=== PATIENT | male | born 1970 | race Caucasian/White ===

== ENCOUNTER 2022-10-08 20:55 | Emergency (ER) | payer OTHER, SELFPAY ==
[2022-10-08 20:59] VITALS: BP 127/83; PULSE 122; RESP 22; TEMP 36.8; O2SAT 96; BMI 32.6
--- NOTE | 2022-10-08 21:07 | ED_ITS ---
HPI - Altered Mental Status General: Chief Complaint: Altered Mental Status Stated Complaint: AMS Time Seen by Provider: 10/08/22 20:56 Source: patient and EMS Mode of arrival: EMS Limitations: no limitations History of Present Illness: 51-year-old male states that he had to carry 50 mg THC edible tonight roughly 2 to 3 hours ago he states he is never taken edible before and he is states he feels out of his mind. He is paranoid and is obviously under the effects of the marijuana he had some vomiting denies any pain. Associated symptoms: Deny depression Review of Systems Const: Denies: fever(s), chills, body aches or change in appetite Eyes: Denies: blurry vision or eye discomfort ENMT: Denies: throat pain or dental pain Card: Denies: chest pain Resp: Denies: dyspnea GI: Denies: abdominal pain, nausea, vomiting or diarrhea : Denies: dysuria Musc: Denies: neck pain or back pain Skin/Breast: Denies: rash Neuro: Denies: headache(s) Psych: Denies: depression Rashawn/Lymph: Denies: easy bruising All/Imm: Denies: urticaria PFSH ED PFSH: Medical History (Updated 10/08/22 @ 21:13 by Nagi Nicholas MD) No pertinent past medical history Social History (Updated 10/08/22 @ 21:08 by Nagi Nicholas MD) Substance/Drug Use: current Substance/Drug use type: Marijuana Physical Exam Const: COMMON NORMALS: patient oriented x3 GENERAL APPEARANCE: anxious HENMT: COMMON NORMALS: normocephalic and atraumatic HEAD & SCALP: normocephalic and atraumatic Eye: COMMON NORMALS: Equal, round and reactive pupils present and conjunctivae normal CONJUNCTIVA: Yes conjunctivae normal PUPIL: Yes Equal, round and reactive pupils present Neck/C-Spine: COMMON NORMALS: supple Chest: COMMONS NORMALS: normal inspection of the chest Resp: COMMON NORMALS: normal respiratory effort and clear to auscultation bilaterally AUSCULTATION: clear to auscultation bilaterally Cardio: COMMON NORMALS: regular rate and regular rhythm RATE: regular rate RHYTHM: regular rhythm GI: COMMON NORMALS: Normal to inspection, nondistended, normoactive bowel sounds present, Soft to palpation and non-tender PALPATION: Yes Soft to palpation Extremity: COMMON NORMALS: normal to inspection Neuro: COMMON NORMALS: patient oriented x3 Psych: COMMON NORMALS: cooperative ATTITUDE: Yes bizarre Skin: COMMON NORMALS: no rashes or lesions noted GENERAL SKIN EXAM: no rashes or lesions noted Course Vital Signs: Vital signs: Vital Signs Temperature 98.2 F 10/08/22 20:59 Pulse Rate 106 H 10/08/22 22:21 Respiratory Rate 18 10/08/22 22:21 Blood Pressure 127/83 10/08/22 20:59 Pulse Oximetry 96 10/08/22 22:21 Oxygen Delivery Me thod 10/08/22 22:21 MDM - Altered Mental Status Medical Decision Making Patient presents here after marijuana abuse he had a to go me never had before and caused him a reaction he is currently improving he is making more sense he is able to ambulate we will let him sober up and discharge him. Lab Data 10/08/22 20:43 10/08/22 20:43 Laboratory Results WBC 10.3 10^3/uL (4.0-10.0) H 10/08/22 20:43 RBC 4.70 10^6/uL (4.1-5.3) 10/08/22 20:43 Hgb 14.0 g/dL (11.7-16.6) 10/08/22 20:43 Hct 40.7 % (42.0-52.0) L 10/08/22 20:43 MCV 86.6 fl (80-94) 10/08/22 20:43 MCH 29.8 pg (28.0-34.0) 10/08/22 20:43 MCHC 34.4 g/dL (30.0-36.0) 10/08/22 20:43 RDW 12.5 % (12.1-15.1) 10/08/22 20:43 Plt Count 217 10^3/cmm (130-400) 10/08/22 20:43 MPV 11.4 fL (7.4-10.4) H 10/08/22 20:43 Neut % (Auto) 40.0 % 10/08/22 20:43 Lymph % (Auto) 48.8 % 10/08/22 20:43 [place] % (Auto) 8.0 % 10/08/22 20:43 Eos % (Auto) 2.0 % 10/08/22 20:43 Baso % (Auto) 0.8 % 10/08/22 20:43 Neut # (Auto) 4.12 10^3/uL (1.8-7.7) 10/08/22 20:43 Lymph # (Auto) 5.0 10^3/uL (0.8-4.8) H 10/08/22 20:43 [place] # (Auto) 0.8 10^3/uL (0.2-0.9) 10/08/22 20:43 Eos # (Auto) 0.2 10^3/uL (0.0-0.8) 10/08/22 20:43 Baso # (Auto) 0.1 10^3/uL (0.0-0.1) 10/08/22 20:43 Nucleated RBC % (auto) 0 % 10/08/22 20:43 Nucleated RBCs # 0.0 /100WBC 10/08/22 20:43 Sodium 135 mmol/L (136-145) L 10/08/22 20:43 Potassium 3.1 mmol/L (3.5-5.1) L 10/08/22 20:43 Chloride 97 mmol/L (98-107) L 10/08/22 20:43 Carbon Dioxide 23 mmol/L (22-29) 10/08/22 20:43 Anion Gap 18.1 (5-19) 10/08/22 20:43 BUN 13 mg/dL (6-20) 10/08/22 20:43 Creatinine 1.2 mg/dL (0.7-1.2) 10/08/22 20:43 GFR Calculation 63.8 mL/min (90-130) L 10/08/22 20:43 Glucose 249 mg/dL (65-115) H 10/08/22 20:43 Calculated Osmolality 288 mOsm/kg (285-295) 10/08/22 20:43 Calcium 9.0 mg/dL (8.5-10.5) 10/08/22 20:43 Total Bilirubin 0.3 mg/dL (0.15-1.2) 10/08/22 20:43 AST 20 U/L (0-40) 10/08/22 20:43 ALT 30 U/L (0-41) 10/08/22 20:43 Alkaline Phosphatase 112 U/L (40-130) 10/08/22 20:43 Total Protein 6.8 g/dL (6.6-8.7) 10/08/22 20:43 Albumin 4.0 g/dL (3.5-5.2) 10/08/22 20:43 Globulin 2.8 g/dL (1.3-4.6) 10/08/22 20:43 Discharge Plan Discharge Patient Disposition: Home Clinical Impression: Marijuana use Discharge Orders: Discharge ED (Routine); Ordered 10/08/22 Ordered By: Nagi Nicholas Discharge Diet: Advance as tolerated Discharge Activity: Resume usual activity Patient Instructions: Marijuana Abuse Coding Level of Care Code ED Automatic Clipper for Kwaku Nevarez
[2022-10-08 21:15] LABS: Basophils # 0.1 10^3/uL (0.0-0.1); Basophils % 0.8 %; Eosinophils # 0.2 10^3/uL (0.0-0.8); Hematocrit 40.7 % (42.0-52.0); Lymphocytes % 48.8 %; Mean Corpuscular HGB Conc 34.4 g/dL (30.0-36.0); Mean Corpuscular Hemoglobin 29.8 pg (28.0-34.0); Mean Corpuscular Volume 86.6 fl (80-94); Mean Platelet Volume 11.4 fL (7.4-10.4); Monocytes # 0.8 10^3/uL (0.2-0.9); Neutrophils # 4.12 10^3/uL (1.8-7.7); Nucleated Red Blood Cells % 0 %; Platelet Count 217 10^3/cmm (130-400); Red Cell Distribution Width 12.5 % (12.1-15.1); White Blood Count 10.3 10^3/uL (4.0-10.0)
[2022-10-08] MEDS: sodium chloride 0.9% 1,000 ML 999 ML IV (21:15)
[2022-10-08] MEDS: ondansetron 2 mg/ML SDV 2 mL 4 MG IVP (21:16)
[2022-10-08] MEDS: LORazepam 2 mg/mL INJ 1 mL 1 MG IVP (21:16)
[2022-10-08 21:34] LABS: Alanine Aminotransferase 30 U/L (0-41); Alkaline Phosphatase 112 U/L (40-130); Anion Gap 18.1 (5-19); Aspartate Amino Transferase 20 U/L (0-40); Blood Urea Nitrogen 13 mg/dL (6-20); Carbon Dioxide 23 mmol/L (22-29); Chloride 97 mmol/L (98-107); Globulin 2.8 g/dL (1.3-4.6); Glomerular Filtration Rate 63.8 mL/min (90-130); Glucose 249 mg/dL (65-115); Osmolality Calculated 288 mOsm/kg (285-295); Potassium 3.1 mmol/L (3.5-5.1); Sodium 135 mmol/L (136-145); Total Bilirubin 0.3 mg/dL (0.15-1.2); Total Protein 6.8 g/dL (6.6-8.7)
--- NOTE | 2022-10-08 21:41 | PC.NURSE ---
9652 - Patient assisted to bedside commode and call light placed beside patient. Advised not to get up without assistance. Understanding verbalized.
[2022-10-08 22:21] VITALS: PULSE 106; RESP 18; O2SAT 96
[2022-10-09 01:04] VITALS: BP 165/100; PULSE 110; RESP 18; O2SAT 98
--- NOTE | 2022-10-15 14:58 | DCPLANNER ---
Addendum entered by Dorohty Russell 10/15/22 14:59: TCM called patient due to no primary care physician listed in patients chart - no answer at this time. Original Note: 10.10.22 - TCM called patient due to no primary care physician listed in patients chart - no answer at this time.
== END 2022-10-09 01:05 | disposition home or self-care (01) ==
PROVIDERS: Emergency Provider Emergency Medicine
DX: F12.90 Cannabis use, unspecified, uncomplicated (principal)
CPT/HCPCS: 80053; 85025; 96361; 96374; 96375; 99284; J2060; J2405; J7030